=== PATIENT | female | born 2000 | race Caucasian/White ===

== ENCOUNTER 2020-10-29 03:07 | Observation (INO) | payer BC, OTHER ==
[2020-10-29 03:52] VITALS: O2SAT 99
[2020-10-29 03:57] LABS: Amphetamine,Urine NEGATIVE (NEGATIVE); Barbiturate,Urine NEGATIVE (NEGATIVE); Benzodiazepine,Urine NEGATIVE (NEGATIVE); Cocaine,Urine NEGATIVE (NEGATIVE); Methadone,Urine NEGATIVE (NEGATIVE); Opiate,Urine NEGATIVE (NEGATIVE); PCP,Urine NEGATIVE (NEGATIVE); THC,Urine NEGATIVE (NEGATIVE)
[2020-10-29 04:19] LABS: Appearance CLEAR (CLEAR); Leukocyte Esterase NEGATIVE (NEGATIVE); Specific Gravity 1.005 (1.005-1.025)
[2020-10-29 04:20] LABS: Bilirubin NEGATIVE (NEGATIVE); Blood NEGATIVE Ery/ul (0-5); Glucose NEGATIVE (NEGATIVE); Ketones NEGATIVE (NEGATIVE); Mucus SLIGHT /HPF (NEGATIVE); Nitrite NEGATIVE (NEGATIVE); Protein,Urine Dip NEGATIVE (Negative); Urobilinogen NEGATIVE mg/dL (0-1); WBC 0-2 /HPF (0-5)
[2020-10-29 04:21] LABS: Bacteria RARE /HPF (NEGATIVE); Epithelial Cells RARE /HPF (FEW)
[2020-10-29 05:12] VITALS: BP 92/60; PULSE 84
== END 2020-10-29 05:00 | disposition home or self-care (01) ==
LOC: OB 03:07
PROVIDERS: ADMIT Obstetrics & Gynecology; ATTEND Obstetrics & Gynecology
DX: O30.003 Twin pregnancy, unspecified number of placenta and unspecified number of amniotic sacs, third trimester (principal); Z3A.28 28 weeks gestation of pregnancy
CPT/HCPCS: 80307; 81001; G0378

== ENCOUNTER 2021-10-25 09:05 | Emergency (ER) | payer BC, OTHER ==
[2021-10-25] MEDS ORDERED: Sodium Chloride 0.9% 1000 ML 1,000 ML IV STA (09:27)
[2021-10-25] MEDS ORDERED: TYLENOL 325 MG PO ONE (09:27)
[2021-10-25] MEDS ORDERED: Zofran 4 MG/2 ML VIAL IV ONE (09:27)
[2021-10-25] MEDS ORDERED: Sodium Chloride 0.9% 1000 ML 1,000 ML ONE (09:47)
[2021-10-25] MEDS ORDERED: TYLENOL 325 MG ONE (09:47)
[2021-10-25] MEDS ORDERED: Zofran 4 MG/2 ML VIAL ONE (09:47)
[2021-10-25 09:58] LABS: Absolute Neutrophil Ct (ANC) 6.83 x10^3/uL (1.4-6.9); Basophil (Absolute #) 0.01 x10^3/uL (0-0.4); Eosinophil (Absolute #) 0 x10^3/uL (0-0.5); Hematocrit 38.5 % (35-47); Hemoglobin 12.5 g/dL (12.0-16.0); Lymphocyte (Absolute #) 1.11 x10^3/uL (1.0-4.6); Lymphocytes % 13.4 % (24.0-44.0); Mean Cell Volume 86.9 fL (78-100); Mean Corpuscular Hemoglobin 28.2 pg (26-32); Mean Corpuscular Hgb Concent. 32.5 g/dL (32-36); Mean Platelet Volume 11.1 fL (7.5-11.0); Monocyte (Absolute #) 0.29 x10^3/uL (0.0-1.3); Monocytes % 3.5 % (0.0-12.0); Neutrophil % 82.8 % (36.0-66.0); Platelet Count 213 x10^3/uL (150-450); Red Blood Count 4.43 x10^6/uL (4.1-5.4); Red Cell Distribution Width 14.5 % (11.5-14.0); White Blood Count 8.3 x10^3/uL (4.0-10.5)
[2021-10-25 10:04] LABS: Mucus SLIGHT /HPF (NEGATIVE); RBC 0-2 /HPF (0-2)
[2021-10-25 10:05] LABS: Appearance CLEAR (CLEAR); Bilirubin NEGATIVE (NEGATIVE); Glucose NEGATIVE (NEGATIVE); Ketones TRACE (NEGATIVE); Nitrite NEGATIVE (NEGATIVE); Protein,Urine Dip NEGATIVE (Negative); RBC NEGATIVE Ery/ul (0-5); Specific Gravity >=1.030 (1.005-1.025); Urine Cultured Indicated? NO; Urobilinogen 0.2 mg/dL (0-1)
[2021-10-25 10:06] LABS: Dipstick done @ ? MAIN LAB
[2021-10-25 10:09] LABS: ALBUMIN 4.9 g/dL (3.5-5.0); ALKALINE PHOSPHATASE 89 U/L (38-126); ANION GAP 17.2 MEQ/L (5-15); BLOOD UREA NITROGEN 9 mg/dL (7-17); CHLORIDE 101 mmol/L (98-107); Calcium 9.4 mg/dL (8.4-10.2); Carbon Dioxide 21 mmol/L (22-30); EST GLOMERULAR FILTRATION RATE > 60.0 ML/MIN; Glucose 95 mg/dL (74-106); LIPASE 49 U/L (23-300); Potassium 3.5 mmol/L (3.5-5.1); SGOT/AST 21 U/L (14-36); SGPT/ALT 14 U/L (0-35); SODIUM 136 mmol/L (137-145); Total Protein 8.8 g/dL (6.3-8.2)
[2021-10-25 10:39] LABS: INFLUENZA A NEGATIVE (NEGATIVE); INFLUENZA B NEGATIVE (NEGATIVE); RESPIRATORY SYNCTIAL VIRUS NEGATIVE (Negative); SARS-CoV-2 Xpert Express NEGATIVE (NEGATIVE)
--- NOTE | 2021-10-25 11:43 | ERPHSYRPT ---
- History of Present Illness Time Seen by Provider: 10/25/21 09:22 Historian: patient Exam Limitations: no limitations Patient Subjective Stated Complaint: pt here for loose stools for 5 days now, lower back pain, fever on and some nausea. Triage Nursing Assessment: pt alert. walked in resp easy, skin w/d/p. abd soft and flat, no edema noted Physician History: 21 years old female presented in the ER with 5 days history of off-and-on loose stool with associated generalized abdominal pain at times. Also reports having low-grade fever 3 days ago which is improved. Has nausea but no vomiting. No known sick contact. Patient is unable to keep up with hydration because of multiple loose bowel movements and feels weak fatigued tired and dehydrated. Denies any dizziness or lightheadedness. No chest pain palpitations or shortness of breath. Does complain of low back pain. Timing/Duration: day(s) (5), intermittent, worse Activities at Onset: rest Quality: aching Abdominal Pain Onset Location: generalized abdomen Pain Radiation: no radiation Severity of Pain-Max: moderate Severity of Pain-Current: none Modifying Factors: Improves With: nothing Associated Symptoms: back, diarrhea, fever/chills, nausea, No vomiting Allergies/Adverse Reactions: No Known Drug Allergies Allergy (Unverified 10/25/21 09:20) Home Medications: Norethindrone [Antonette] 1 ea DAILY 10/25/21 [History] Hx Tetanus, Diphtheria Vaccination/Date Given: No Hx Influenza Vaccination/Date Given: No Hx Pneumococcal Vaccination/Date Given: No Immunizations Up to Date: Yes Travel Risk - International Travel Have you traveled outside of the country in past 3 weeks: No - Coronavirus Screening Are you exhibiting any of the following symptoms?: Yes Symptoms: Fever, Vomiting/Diarrhea, Headaches/Body Aches/Fatigue Close contact with a COVID-19 positive Pt in past 14-21 Days: No - Vaccine Status Have you recieved a Covid-19 vaccination: No - Review of Systems Constitutional: Fever, Fatigue, Weakness Eyes: No Symptoms Ears, Nose, & Throat: No Symptoms Respiratory: No Symptoms Cardiac: No Symptoms Abdominal/Gastrointestinal: Abdominal Pain, Nausea, Diarrhea Genitourinary Symptoms: No Symptoms Musculoskeletal: Back Pain Neurological: No Symptoms Psychological: No Symptoms Endocrine: No Symptoms Hematologic/Lymphatic: No Symptoms Immunological/Allergic: No Symptoms - Past Medical History Pertinent Past Medical History: No - Past Surgical History Past Surgical History: No - Social History Smoking Status: Never smoker Exposure to second hand smoke: No Drug Use: none Patient Lives Alone: No - Female History Hx Last Menstrual Period: August Hx Now: No - Nursing Vital Signs Nursing Vital Signs: Initial Vital Signs Temperature 97.9 F 10/25/21 09:08 Pulse Rate 120 H 10/25/21 09:08 Respiratory Rate 16 10/25/21 09:08 Blood Pressure 99/84 10/25/21 09:08 O2 Sat by Pulse Oximetry 99 10/25/21 09:08 Pain Scale Pain Intensity 4 - Physical Exam General Appearance: no apparent distress Eye Exam: PERRL/EOMI Ears, Nose, Throat Exam: normal ENT inspection Neck Exam: normal inspection, full range of motion Respiratory Exam: normal breath sounds, lungs clear Cardiovascular Exam: normal heart sounds, tachycardia Gastrointestinal/Abdomen Exam: soft, normal bowel sounds, No tenderness Back Exam: normal inspection, normal range of motion Extremity Exam: normal inspection, normal range of motion Neurologic Exam: alert, oriented x 3, cooperative Skin Exam: normal color SpO2 Interpretation: normal SpO2: 98 O2 Delivery: Room Air Ordered Tests: Active Orders 24 hr Category Date Time Status IV Insertion STAT Care 10/25/21 09:27 Active CBC W DIFF Stat Lab 10/25/21 09:42 Completed CMP Stat Lab 10/25/21 09:42 Completed HCG,QUALITATIVE URINE Stat Lab 10/25/21 09:42 Completed LIPASE Stat Lab 10/25/21 09:42 Completed UA W/RFX CULTURE Stat Lab 10/25/21 09:42 Completed Medication Summary Discontinued Medications Generic Name Dose Route Start Last Admin Trade Name Davey PRN Reason Stop Dose Admin Acetaminophen 650 mg 10/25/21 09:27 10/25/21 09:53 Acetaminophen 325 Mg Tablet PO 10/25/21 09:28 650 mg STAT ONE Administration Acetaminophen Confirm 10/25/21 09:47 Acetaminophen 325 Mg Tablet Administered 10/25/21 09:48 Dose 650 mg .ROUTE .STK-MED ONE Sodium Chloride 1,000 mls @ 999 mls/hr 10/25/21 09:27 10/25/21 11:21 Sodium Chloride 0.9% 1000 Ml IV 10/25/21 10:27 Infused .Q1H1M STA Infusion Sodium Chloride Confirm 10/25/21 09:47 Sodium Chloride 0.9% 1000 Ml Administered 10/25/21 09:48 Dose 1,000 mls @ ud .ROUTE .STK-MED ONE Ondansetron HCl 4 mg 10/25/21 09:27 10/25/21 09:52 Ondansetron Hcl 4 Mg/2 Ml Vial IV 10/25/21 09:28 4 mg STAT ONE Administration Ondansetron HCl Confirm 10/25/21 09:47 Ondansetron Hcl 4 Mg/2 Ml Vial Administered 10/25/21 09:48 Dose 4 mg .ROUTE .K-[facility] ONE Lab/Rad Data: Laboratory Result Diagrams 10/25/21 09:42 10/25/21 09:42 Laboratory Results 10/25/21 10/25/21 10/25/21 Range/Units 09:42 09:42 09:42 WBC (4.0-10.5) x10^3/uL RBC (4.1-5.4) x10^6/uL Hgb (12.0-16.0) g/dL Hct (35-47) % MCV (78-100) fL MCH (26-32) pg MCHC (32-36) g/dL RDW (11.5-14.0) % Plt Count (150-450) x10^3/uL MPV (7.5-11.0) fL Gran % (36.0-66.0) % Immature Gran % (Auto) (0.00-0.4) % Nucleat RBC Rel Count (0.00-0.1) % Eos # (Auto) (0-0.5) x10^3/uL Immature Gran # (Auto) (0.00-0.03) x10^3u/L Absolute Lymphs (auto) (1.0-4.6) x10^3/uL Absolute Monos (auto) (0.0-1.3) x10^3/uL Absolute Nucleated RBC (0.00-0.01) x10^3u/L Lymphocytes % (24.0-44.0) % Monocytes % (0.0-12.0) % Eosinophils % (0.00-5.0) % Basophils % (0.0-0.4) % Absolute Granulocytes (1.4-6.9) x10^3/uL Basophils # (0-0.4) x10^3/uL Sodium 136 L (137-145) mmol/L Potassium 3.5 (3.5-5.1) mmol/L Chloride 101 (98-107) mmol/L Carbon Dioxide 21 L (22-30) mmol/L Anion Gap 17.2 H (5-15) MEQ/L BUN 9 (7-17) mg/dL Creatinine 0.50 L (0.52-1.04) mg/dL Estimated GFR > 60.0 ML/MIN Glucose 95 (74-106) mg/dL Calcium 9.4 (8.4-10.2) mg/dL Total Bilirubin 0.50 (0.2-1.3) mg/dL AST 21 (14-36) U/L ALT 14 (0-35) U/L Alkaline Phosphatase 89 (38-126) U/L Serum Total Protein 8.8 H (6.3-8.2) g/dL Albumin 4.9 (3.5-5.0) g/dL Lipase 49 (23-300) U/L Urinalys Dipstick Clnc MAIN LAB Urine Color YELLOW (YELLOW) Urine Appearance CLEAR (CLEAR) Urine pH 6.0 (5-6) Ur Specific Qu[place] >=1.030 (1.005-1.025) POC Urine Protein Conf NEGATIVE (Negative) Urine Ketones TRACE (NEGATIVE) Urine Nitrite NEGATIVE (NEGATIVE) Urine Bilirubin NEGATIVE (NEGATIVE) Urine Urobilinogen 0.2 (0-1) mg/dL Urine Leukocytes NEGATIVE (NEGATIVE) Urine WBC (Auto) NONE (0-5) /HPF Urine RBC (Auto) 0-2 (0-2) /HPF U Epithel Cells (Auto) NONE (FEW) /HPF Urine Bacteria (Auto) NONE (NEGATIVE) /HPF Urine RBC NEGATIVE (0-5) Armando/ul Urine Mucus (Auto) SLIGHT (NEGATIVE) /HPF Ur Culture Indicated? NO Urine Glucose NEGATIVE (NEGATIVE) mg/dL Urine HCG, Qual (Negative) Influenza Type A Ag NEGATIVE (NEGATIVE) Influenza Type B Ag NEGATIVE (NEGATIVE) RSV (PCR) NEGATIVE (Negative) SARS-CoV-2 (PCR) NEGATIVE (NEGATIVE) 10/25/21 10/25/21 Range/Units 09:42 09:42 WBC 8.3 (4.0-10.5) x10^3/uL RBC 4.43 (4.1-5.4) x10^6/uL Hgb 12.5 (12.0-16.0) g/dL Hct 38.5 (35-47) % MCV 86.9 (78-100) fL MCH 28.2 (26-32) pg MCHC 32.5 (32-36) g/dL RDW 14.5 H (11.5-14.0) % Plt Count 213 (150-450) x10^3/uL MPV 11.1 H (7.5-11.0) fL Gran % 82.8 H (36.0-66.0) % Immature Gran % (Auto) 0.2 (0.00-0.4) % Nucleat RBC Rel Count 0.0 (0.00-0.1) % Eos # (Auto) 0 (0-0.5) x10^3/uL Immature Gran # (Auto) 0.02 (0.00-0.03) x10^3u/L Absolute Lymphs (auto) 1.11 (1.0-4.6) x10^3/uL Absolute Monos (auto) 0.29 (0.0-1.3) x10^3/uL Absolute Nucleated RBC 0.00 (0.00-0.01) x10^3u/L Lymphocytes % 13.4 L (24.0-44.0) % Monocytes % 3.5 (0.0-12.0) % Eosinophils % 0.0 (0.00-5.0) % Basophils % 0.1 (0.0-0.4) % Absolute Granulocytes 6.83 (1.4-6.9) x10^3/uL Basophils # 0.01 (0-0.4) x10^3/uL Sodium (137-145) mmol/L Potassium (3.5-5.1) mmol/L Chloride (98-107) mmol/L Carbon Dioxide (22-30) mmol/L Anion Gap (5-15) MEQ/L BUN (7-17) mg/dL Creatinine (0.52-1.04) mg/dL Estimated GFR ML/MIN Glucose (74-106) mg/dL Calcium (8.4-10.2) mg/dL Total Bilirubin (0.2-1.3) mg/dL AST (14-36) U/L ALT (0-35) U/L Alkaline Phosphatase (38-126) U/L Serum Total Protein (6.3-8.2) g/dL Albumin (3.5-5.0) g/dL Lipase (23-300) U/L Urinalys Dipstick Clnc Urine Color (YELLOW) Urine Appearance (CLEAR) Urine pH (5-6) Ur Specific Qu[place] (1.005-1.025) POC Urine Protein Conf (Negative) Urine Ketones (NEGATIVE) Urine Nitrite (NEGATIVE) Urine Bilirubin (NEGATIVE) Urine Urobilinogen (0-1) mg/dL Urine Leukocytes (NEGATIVE) Urine WBC (Auto) (0-5) /HPF Urine RBC (Auto) (0-2) /HPF U Epithel Cells (Auto) (FEW) /HPF Urine Bacteria (Auto) (NEGATIVE) /HPF Urine RBC (0-5) Armando/ul Urine Mucus (Auto) (NEGATIVE) /HPF Ur Culture Indicated? Urine Glucose (NEGATIVE) mg/dL Urine HCG, Qual NEGATIVE (Negative) Influenza Type A Ag (NEGATIVE) Influenza Type B Ag (NEGATIVE) RSV (PCR) (Negative) SARS-CoV-2 (PCR) (NEGATIVE) - Progress Progress: improved Progress Note: 10/25/21 11:40 She is given symptomatic treatment along with fluids, on reevaluation feeling much better. No peritoneal signs on repeated evaluation as well. Normal white count, chemistries consistent with some dehydration. No UTI. Do not think needs imaging of abdomen as it seems to be viral gastroenteritis. Recommended increase hydration and will do Zofran. She has a negative COVID-19 as well. Discussed signs symptoms of worsening needing return to ER which she seems understanding. Counseled pt/family regarding: lab results, diagnosis, need for follow-up - Departure Departure Disposition: Home Clinical Impression: Gastroenteritis Condition: Stable Critical Care Time: No Referrals: DOCTOR,NO FAMILY [Primary Care Provider] - Follow up/PCP as directed BONNY BONILLA MD [ACTIVE STAFF] - Follow Up with PCP/3 days Instructions: Viral Gastroenteritis, Adult (DC) Additional Instructions: Drink plenty of fluids keep yourself well-hydrated. Take Tylenol as needed for pain. Take Zofran as needed for nausea. Follow-up with primary care for reevaluation. Return to ER for any worsening/intractable nausea vomiting/diarrhea/abdominal pain or if develop fever chills etc. Prescriptions: Ondansetron ODT 4 MG [Zofran Odt 4 mg] 1 ea PO QIDPRN PRN #7 tablet PRN Reason: n/v
[2021-10-25 12:00] VITALS: BP 95/69; PULSE 92; O2SAT 99
== END 2021-10-25 12:04 | disposition home or self-care (01) ==
LOC: ED 09:05
DX: A08.4 Viral intestinal infection, unspecified (principal); R19.7 Diarrhea, unspecified; R50.9 Fever, unspecified; R11.0 Nausea; R53.1 Weakness; R53.83 Other fatigue; R10.84 Generalized abdominal pain; Z28.310 Unvaccinated for COVID-19
CPT/HCPCS: 0241U; 36000; 36415; 80053; 81015; 81025; 83690; 85025; 96360; 96374; 99284; J2405; A9270-GY

== ENCOUNTER 2022-02-17 13:28 | Emergency (ER) | payer BC, OTHER ==
[2022-02-17 14:25] LABS: Basophil (Absolute #) 0.02 x10^3/uL (0-0.4); Eosinophil % 3.8 % (0.00-5.0); Eosinophil (Absolute #) 0.29 x10^3/uL (0-0.5); Hematocrit 35.4 % (35-47); Hemoglobin 11.4 g/dL (12.0-16.0); Lymphocyte (Absolute #) 2.11 x10^3/uL (1.0-4.6); Lymphocytes % 27.8 % (24.0-44.0); Mean Cell Volume 89.4 fL (78-100); Mean Corpuscular Hemoglobin 28.8 pg (26-32); Mean Corpuscular Hgb Concent. 32.2 g/dL (32-36); Mean Platelet Volume 10.8 fL (7.5-11.0); Monocyte (Absolute #) 0.34 x10^3/uL (0.0-1.3); Monocytes % 4.5 % (0.0-12.0); Neutrophil % 63.3 % (36.0-66.0); Platelet Count 188 x10^3/uL (150-450); Red Blood Count 3.96 x10^6/uL (4.1-5.4); Red Cell Distribution Width 15.3 % (11.5-14.0); White Blood Count 7.6 x10^3/uL (4.0-10.5)
[2022-02-17 14:56] LABS: Appearance CLEAR (CLEAR); Bilirubin NEGATIVE (NEGATIVE); Dipstick done @ ? MAIN LAB; Glucose NEGATIVE (NEGATIVE); Ketones NEGATIVE (NEGATIVE); Nitrite NEGATIVE (NEGATIVE); Protein,Urine Dip NEGATIVE (Negative); RBC NEGATIVE Ery/ul (0-5); Urobilinogen 0.2 mg/dL (0-1)
--- NOTE | 2022-02-17 14:56 | XRAY ---
Indication: Premature rupture of membranes. Evaluate RGEGORY and cervical length. Limited transabdominal OB ultrasound demonstrates single intrauterine with heart rate 146 BPM. 4 quadrant GREGORY is 3.5 cm. Cervical length is 3.1 cm with endocervix slightly open.
[2022-02-17 14:58] LABS: Urine Cultured Indicated? NO
--- NOTE | 2022-02-17 15:08 | ERPHSYRPT ---
- History of Present Illness Time Seen by Provider: 02/17/22 13:45 Source: patient Exam Limitations: no limitations Patient Subjective Stated Complaint: Pt is 17 weeks and at 15 weeks the pt had a US and she had low umbilical fluid and was told that it may have burst and she could terminate the or wait and see what her body does and to go to the ER if she ever feels like she may be getting an infections, so she is waiting and today she woke up feeling lethargic and she noticed her heart rate was running high and so she came in to be checked out Triage Nursing Assessment: Pt brought to the ER by her mother, tachycardic, de nies pain, pulses normal, skin n/w/d, urine appears really hydrated, doesn't appear to be in any distress Physician History: Patient is a 21-year-old 3 para 3 0 white female who presents at 17 weeks gestation. She presents with a complaint of lethargy and increased heart rate but no fever chills or sweats. She also reports her urine has been clear. She is followed by an STATE MANAGER in [place] and has been found to have lower than normal amounts of amniotic fluid. She was told to watch for fever chills or any other signs of amnionitis. Timing/Duration: day(s) (3), intermittent Activites at Onset: none Quality: cramping Onset Location: suprapubic Pain Radiation: none Severity of Pain-Max: moderate Severity of Pain-Current: moderate Prior abdominal problems: none Sexual intercourse history: non-contributory Allergies/Adverse Reactions: No Known Drug Allergies Allergy (Verified 02/17/22 13:48) Home Medications: Pnv No.95/Ferrous Fum/Folic AC [ Caplet] 1 each PO DAILY 02/17/22 [History] Hx Tetanus, Diphtheria Vaccination/Date Given: No Hx Influenza Vaccination/Date Given: No Hx Pneumococcal Vaccination/Date Given: No Travel Risk - International Travel Have you traveled outside of the country in past 3 weeks: No - Coronavirus Screening Are you exhibiting any of the following symptoms?: No Close contact with a COVID-19 positive Pt in past 14-21 Days: No - Vaccine Status Have you recieved a Covid-19 vaccination: No - Review of Systems Constitutional: No Fever, No Chills Eyes: No Symptoms Ears, Nose, & Throat: No Symptoms Respiratory: No Cough, No Dyspnea Cardiac: No Chest Pain, No Edema, No Syncope Abdominal/Gastrointestinal: No Abdominal Pain, No Nausea, No Vomiting, No Diarrhea Genitourinary Symptoms: No Dysuria Musculoskeletal: No Back Pain, No Neck Pain Skin: No Rash Neurological: No Dizziness, No Focal Weakness, No Sensory Changes Psychological: No Symptoms Endocrine: No Symptoms All Other Systems: Reviewed and Negative - Past Medical History Pertinent Past Medical History: No - Past Surgical History Past Surgical History: No - Social History Smoking Status: Never smoker Exposure to second hand smoke: No Drug Use: none Patient Lives Alone: No - Female History Hx Now: Yes Expected Date of Delivery: 07/23/22 - Nursing Vital Signs Nursing Vital Signs: Initial Vital Signs Temperature 98.3 F 02/17/22 13:34 Pulse Rate 109 H 02/17/22 13:34 Blood Pressure 102/73 02/17/22 13:34 O2 Sat by Pulse Oximetry 100 02/17/22 13:34 Pain Scale Pain Intensity 0 - Physical Exam General Appearance: mild distress, alert Eye Exam: PERRL/EOMI, eyes nml inspection Ears, Nose, Throat Exam: normal ENT inspection, TMs normal, pharynx normal, moist mucous membranes Neck Exam: normal inspection, non-tender, supple, full range of motion Respiratory Exam: normal breath sounds, lungs clear, No respiratory distress Cardiovascular Exam: regular rate/rhythm, normal heart sounds, normal peripheral pulses Gastrointestinal/Abdomen Exam: soft, No tenderness, No mass Back Exam: normal inspection, normal range of motion, No CVA tenderness, No vertebral tenderness Extremity Exam: normal inspection, normal range of motion, pelvis stable Neurologic Exam: alert, oriented x 3, cooperative, applied anthropologist II-XII nml as tested, no rmal mood/affect, sensation nml, No motor deficits Skin Exam: normal color, warm, dry Lymphatic Exam: No adenopathy SpO2: 100 - Course Nursing assessment & vital signs reviewed: Yes - Radiology Ultrasound Exam OB Ultrasound: Other (Ultrasound shows a amniotic fluid index of 3.5. Consistent with oligohydramnios) Ordered Tests: Active Orders 24 hr Category Date Time Status OB LIMITED [US] Stat Exams 02/17/22 14:52 Completed CBC W DIFF Stat Lab 02/17/22 14:16 Completed UA W/RFX CULTURE Stat Lab 02/17/22 14:20 Completed Lab/Rad Data: Laboratory Result Diagrams 02/17/22 14:16 Laboratory Results 02/17/22 02/17/22 Range/Units 14:20 14:16 WBC 7.6 (4.0-10.5) x10^3/uL RBC 3.96 L (4.1-5.4) x10^6/uL Hgb 11.4 L (12.0-16.0) g/dL Hct 35.4 (35-47) % MCV 89.4 (78-100) fL MCH 28.8 (26-32) pg MCHC 32.2 (32-36) g/dL RDW 15.3 H (11.5-14.0) % Plt Count 188 (150-450) x10^3/uL MPV 10.8 (7.5-11.0) fL Gran % 63.3 (36.0-66.0) % Immature Gran % (Auto) 0.3 (0.00-0.4) % Nucleat RBC Rel Count 0.0 (0.00-0.1) % Eos # (Auto) 0.29 (0-0.5) x10^3/uL Immature Gran # (Auto) 0.02 (0.00-0.03) x10^3u/L Absolute Lymphs (auto) 2.11 (1.0-4.6) x10^3/uL Absolute Monos (auto) 0.34 (0.0-1.3) x10^3/uL Absolute Nucleated RBC 0.00 (0.00-0.01) x10^3u/L Lymphocytes % 27.8 (24.0-44.0) % Monocytes % 4.5 (0.0-12.0) % Eosinophils % 3.8 (0.00-5.0) % Basophils % 0.3 (0.0-0.4) % Absolute Granulocytes 4.80 (1.4-6.9) x10^3/uL Basophils # 0.02 (0-0.4) x10^3/uL Urinalys Dipstick Clnc MAIN LAB Urine Color LT.YELLOW (YELLOW) Urine Appearance CLEAR (CLEAR) Urine pH 6.0 (5-6) Ur Specific [place]der 1.010 (1.005-1.025) POC Urine Protein Conf NEGATIVE (Negative) Urine Ketones NEGATIVE (NEGATIVE) Urine Nitrite NEGATIVE (NEGATIVE) Urine Bilirubin NEGATIVE (NEGATIVE) Urine Urobilinogen 0.2 (0-1) mg/dL Urine Leukocytes NEGATIVE (NEGATIVE) Urine WBC (Auto) NONE (0-5) /HPF Urine RBC (Auto) NONE (0-2) /HPF U Epithel Cells (Auto) NONE (FEW) /HPF Urine Bacteria (Auto) NONE (NEGATIVE) /HPF Urine RBC NEGATIVE (0-5) Armando/ul Ur Culture Indicated? NO Urine Glucose NEGATIVE (NEGATIVE) mg/dL - Progress Progress: unchanged Air Movement: good Blood Culture(s) Obtained: No Antibiotics given: No - Departure Departure Disposition: Home Clinical Impression: Oligohydramnios Condition: Stable Critical Care Time: No Referrals: DOCTOR,NO FAMILY [Primary Care Provider] - Follow up/PCP as directed Instructions: Threatened Miscarriage (DC)
[2022-02-17 15:13] VITALS: BP 106/66; PULSE 86; O2SAT 98
== END 2022-02-17 15:15 | disposition home or self-care (01) ==
LOC: ED 13:28
DX: O41.02X0 Oligohydramnios, second trimester, not applicable or unspecified (principal); Z3A.17 17 weeks gestation of pregnancy; O26.812 Pregnancy related exhaustion and fatigue, second trimester; Z28.310 Unvaccinated for COVID-19
CPT/HCPCS: 36415; 76815; 81015; 85025; 99283

== ENCOUNTER 2022-05-08 03:25 | Emergency (ER) | payer BC, OTHER ==
[2022-05-08] MEDS ORDERED: TYLENOL 325 MG PO STA (03:47)
[2022-05-08] MEDS ORDERED: MOTRIN 400 MG PO ONE (03:47)
[2022-05-08] MEDS ORDERED: TYLENOL 325 MG ONE (03:49)
[2022-05-08] MEDS ORDERED: MOTRIN 400 MG ONE (03:49)
--- NOTE | 2022-05-08 04:02 | ERPHSYRPT ---
- History of Present Illness Time Seen by Provider: 05/08/22 03:40 Source: patient Exam Limitations: no limitations Patient Subjective Stated Complaint: Pt reports she had a approx [address] Louie at [facility]. For two days she has been experienci ng diarrhea, migraine and nausea with no vomiting. She woke up this morning and had a fever of 100.4F. Triage Nursing Assessment: Pt alert and oriented x3. No apparent respiratory distress. Skin w/d/p. Ambulated to ED cot without difficulty. incision clean and dry, no redness or drainage. Physician History: This is a 21-year-old white female patient who underwent a section 3 weeks ago at [facility]. The last 2 days patient has experienced intermittent fevers, migraine headaches and nausea without vomiting. She has had a few loose stools as well. This morning, her fever was 100.4 F. Patient states her headache and fever have improved with Tylenol and ibuprofen. Patient does have a history of anxiety issues. She does not have chest pain. She denies a cough. She denies shortness of breath. She has no significant abdominal pain. Timing/Duration: day(s) (2) Cough Quality/Degree: no cough Possible Cause: no prior episodes Modifying Factors: Improves With: nothing Associated Symptoms: fever, headache, No chest pain/soreness, No cough, No muscle aches, No shortness of breath, No sore throat Allergies/Adverse Reactions: No Known Drug Allergies Allergy (Verified 05/08/22 03:32) Home Medications: Pnv No.95/Ferrous Fum/Folic AC [ Caplet] 1 each PO DAILY 02/17/22 [History] Hx Tetanus, Diphtheria Vaccination/Date Given: Yes Hx Influenza Vaccination/Date Given: No Hx Pneumococcal Vaccination/Date Given: No Travel Risk - International Travel Have you traveled outside of the country in past 3 weeks: No - Coronavirus Screening Are you exhibiting any of the following symptoms?: Yes Symptoms: Fever Close contact with a COVID-19 positive Pt in past 14-21 Days: No - Vaccine Status Have you recieved a Covid-19 vaccination: No - Review of Systems Constitutional: Fever Eyes: No Symptoms Ears, Nose, & Throat: No Symptoms Respiratory: No Symptoms Cardiac: No Symptoms Abdominal/Gastrointestinal: Nausea, Diarrhea, No Abdominal Pain, No Vomiting Genitourinary Symptoms: No Symptoms Musculoskeletal: No Symptoms Skin: No Symptoms Neurological: No Symptoms Psychological: No Symptoms Endocrine: No Symptoms Hematologic/Lymphatic: No Symptoms Immunological/Allergic: No Symptoms All Other Systems: Reviewed and Negative - Past Medical History Pertinent Past Medical History: Yes Psycho-Social History: Anxiety - Past Surgical History Past Surgical History: Yes Female Surgical History: Section - Social History Smoking Status: Never smoker Exposure to second hand smoke: No Drug Use: none Patient Lives Alone: No - Female History Hx Now: No - Nursing Vital Signs Nursing Vital Signs: Initial Vital Signs Temperature 100.2 F 05/08/22 03:31 Pulse Rate 126 H 05/08/22 03:31 Respiratory Rate 17 05/08/22 03:31 Blood Pressure 107/73 05/08/22 03:31 O2 Sat by Pulse Oximetry 96 05/08/22 03:31 Pain Scale Pain Intensity 3 - Physical Exam General Appearance: no apparent distress, alert, anxiety Eye Exam: PERRL/EOMI, eyes nml inspection Ears, Nose, Throat Exam: normal ENT inspection, moist mucous membranes Neck Exam: normal inspection, non-tender, supple, full range of motion Respiratory Exam: normal breath sounds, lungs clear, airway intact, No chest tenderness, No respiratory distress Cardiovascular Exam: tachycardia Gastrointestinal/Abdomen Exam: soft, normal bowel sounds, other (Incision site is clean dry intact without evidence of infection or drainage), No tenderness Pelvic Exam: not done Rectal Exam: not done Back Exam: normal inspection, normal range of motion, No CVA tenderness, No vertebral tenderness Extremity Exam: normal inspection, normal range of motion, pelvis stable Neurologic Exam: alert, oriented x 3, cooperative, pmo lead II-XII nml as tested, normal mood/affect, nml cerebellar function, nml station & gait, sensation nml Skin Exam: normal color, warm, dry Lymphatic Exam: No adenopathy SpO2 Interpretation: normal SpO2: 96 O2 Delivery: Room Air - Course Nursing assessment & vital signs reviewed: Yes Ordered Tests: Active Orders 24 hr Category Date Time Status UA W/RFX UR CULTURE Stat Lab 05/08/22 05:00 Completed Medication Summary Discontinued Medications Generic Name Dose Route Start Last Admin Trade Name Freq PRN Reason Stop Dose Admin Acetaminophen 650 mg 05/08/22 03:47 05/08/22 03:50 Acetaminophen 325 Mg Tablet PO 05/08/22 03:48 650 mg STAT STA Administration Acetaminophen Confirm 05/08/22 03:49 Acetaminophen 325 Mg Tablet Administered 05/08/22 03:50 Dose 650 mg .ROUTE .STK-MED ONE Ibuprofen 400 mg 05/08/22 03:47 05/08/22 03:50 Ibuprofen 400 Mg Tablet PO 05/08/22 03:48 400 mg STAT ONE Administration Ibuprofen Confirm 05/08/22 03:49 Ibuprofen 400 Mg Tablet Administered 05/08/22 03:50 Dose 400 mg .ROUTE .STK-MED ONE Lab/Rad Data: Laboratory Results 05/08/22 05/08/22 Range/Units 05:00 04:15 Urine Color Yellow (Yellow) Urine Appearance Clear (Clear) Urine pH 6.5 (4.6-8.0) Ur Specific [place] 1.015 (1.005-1.030) Urine Protein Negative (Negative) Urine Glucose (UA) Negative (Negative) mg/dL Urine Ketones Negative (Negative) Urine Blood Small A (Negative) Urine Nitrite Negative (Negative) Urine Bilirubin Negative (Negative) Urine Urobilinogen 1.0 A (0.2) mg/dL Ur Leukocyte Esterase Negative (Negative) U Hyaline Cast (Auto) NONE SEEN (0-2) /LPF Urine Microscopic RBC 6-10 A (0-5) /HPF Urine Microscopic WBC 0-2 (0-5) /HPF Ur Epithelial Cells Few (None Seen) /HPF Urine Bacteria None Seen (None Seen) /HPF Urine Culture Reflexed NO (NO) Group A Strep Antibody NOT DETECTED (NEGATIVE) - Progress Progress: improved, re-examined Air Movement: good Progress Note: 05/08/22 04:41 Patient is refusing the COVID, influenza a and B, and RSV nasal swab testing. She is allowing strep test and urinalysis. 05/08/22 05:34 This patient's medical issue is of low complexity. This is based on the patient's complaint, patient history and physical findings on examination. I had originally ordered viral swabs, strep test and urinalysis. Patient is refusing the nasal swabs. So her testing is incomplete by her choice. Her diagnosis is fever in adult of unknown source. In addition, nausea in adult of unknown source. She is aware that she has refused testing that could give her an additional diagnosis. Patient does not have an acute abdomen. She has no cough. Based on the above we will send a prescription of Zofran to her pharmacy. She can use Tylenol and ibuprofen for fever and pain control Blood Culture(s) Obtained: No Antibiotics given: No Counseled pt/family regarding: lab results, diagnosis, need for follow-up Medical Desision Making - Discussion of managment Reviewed:: Test results (Reviewed with patient) Agreed on:: Treatment plan (Reviewed with patient), need for follow-up (Reviewed with patient) - Diagnostic Testing Diagnostic Testing: Diagnostic tests were ordered,analyzed, and reviewed by me and used in my medical decision making for this patient. Radiologic studies (if ordered) were read by me initially then discussed with the radiologist . - Risk of complications Minimal Risk: Minimal risk of morbidity - Departure Departure Disposition: Home Clinical Impression: Nausea, Fever, Diarrhea Condition: Stable Critical Care Time: No Referrals: YESICA ARNOLD [employer]ER[employer]GEANT [Primary Care Provider] - Follow up/PCP as directed Additional Instructions: Drink plenty of fluids. Take your medication as prescribed. Use Tylenol and ibuprofen for pain and fever control. Follow-up with your primary care provider for further evaluation and management. Prescriptions: Ondansetron ODT 4 MG [Zofran Odt 4 mg] 4 mg PO Q6H PRN PRN #10 tablet PRN Reason: Vomiting
[2022-05-08 05:25] LABS: Appearance Clear (Clear); Bacteria None Seen /HPF (None Seen); Bilirubin Negative (Negative); Blood Small (Negative); Epithelial Cells Few /HPF (None Seen); Glucose, Urine Negative (Negative); Hyaline Casts NONE SEEN /LPF (0-2); Ketones Negative (Negative); Leukocyte Esterase Negative (Negative); Nitrite Negative (Negative); Ph 6.5 (4.6-8.0); Protein,Urine Dip Negative (Negative); Specific Gravity 1.015 (1.005-1.030); WBC 0-2 /HPF (0-5)
[2022-05-08 05:29] LABS: ADD URINE CULTURE? NO (NO)
[2022-05-08 05:40] VITALS: BP 105/59; PULSE 72; O2SAT 97
== END 2022-05-08 05:45 | disposition home or self-care (01) ==
LOC: ED 03:25
DX: R50.9 Fever, unspecified (principal); R11.0 Nausea; R19.7 Diarrhea, unspecified; Z28.310 Unvaccinated for COVID-19
CPT/HCPCS: 81001; 87651; 99283; A9270-GY

== ENCOUNTER 2023-08-17 14:42 | Emergency (ER) | payer BC, OTHER ==
[2023-08-17 14:55] VITALS: TEMP 97.4; O2SAT 97
[2023-08-17] MEDS: BENADRYL 12.5 MG/5 ML PO ONE (15:07)
[2023-08-17] MEDS ORDERED: solu-MEDROL ONE (15:07)
[2023-08-17] MEDS ORDERED: Sterile H2O 10 ml IJ ONE (15:07)
[2023-08-17] MEDS ORDERED: Pepcid 20 MG VIAL IV ONE (15:07)
[2023-08-17] MEDS ORDERED: BENADRYL 50 MG/ML ONE (15:07)
[2023-08-17] MEDS: solu-MEDROL 125 MG, Sterile H2O 10 ml 2 ML IV ONE (15:09)
[2023-08-17] MEDS: Pepcid 20 MG VIAL IV ONE (15:09)
[2023-08-17] MEDS: BENADRYL 50 MG/ML IV ONE (15:10)
--- NOTE | 2023-08-17 15:53 | ERPHSYRPT ---
- History of Present Illness Time Seen by Provider: 08/17/23 15:00 Source: patient Exam Limitations: no limitations Patient Subjective Stated Complaint: pt here for allergic reaction to almonds about 15 mins ago, she states she had a reaction similar to this years ago but up until today she has been able to eat them Triage Nursing Assessment: pt alert, walked in, resp easy, no drooling, no rash,skin w/d/p. moves all ext well, no edema noted Physician History: Patient is a 23-year-old female presents to emergency department for evaluation of an allergic reaction. Patient believes that her allergic reaction is to a lmonds. Patient had almonds prior to onset of her symptoms. Patient had a similar reaction when she was a child. Patient is known to be allergic to nuts. After eating her almonds patient developed a fullness in her throat. Patient became concerned and came to our ED. Otherwise no systemic manifestations. No pruritus or hives. No wheezing or shortness of breath. No abdominal cramping. Patient symptoms are mild to moderate in intensity. Patient states otherwise healthy. She voices no other complaints or concerns at this time. Portions of this note were created with voice recognition technology. There may be grammatical, spelling, punctuation or sound alike errors Timing/Duration: today Severity: moderate Modifying Factors: Improves With: nothing Associated Symptoms: denies symptoms Allergies/Adverse Reactions: nut - unspecified Allergy (Verified 08/17/23 14:45) Home Medications: Dextroamphetamine/Amphetamine [Dextroamp-Amphet ER 5 mg Cap] 1 ea DAILY 08/17/23 [History] Oxcarbazepine [Oxtellar Xr] 150 mg PO DAILY 08/17/23 [History] Hx Tetanus, Diphtheria Vaccination/Date Given: No Hx Influenza Vaccination/Date Given: No Hx Pneumococcal Vaccination/Date Given: No Immunizations Up to Date: Yes Travel Risk - International Travel Have you traveled outside of the country in past 3 weeks: No - Emerging Infectious Disease Are you exhibiting symptoms associated with any current EIDs: No - Review of Systems Constitutional: No Symptoms, No Fever, No Chills Eyes: No Symptoms Ears, Nose, & Throat: No Symptoms Respiratory: No Symptoms, No Cough, No Dyspnea Cardiac: No Symptoms, No Chest Pain, No Edema, No Syncope Abdominal/Gastrointestinal: No Symptoms, No Abdominal Pain, No Nausea, No Vomiting, No Diarrhea Genitourinary Symptoms: No Symptoms, No Dysuria Musculoskeletal: No Symptoms, No Back Pain, No Neck Pain Skin: No Symptoms, No Rash Neurological: No Symptoms, No Dizziness, No Focal Weakness, No Sensory Changes Psychological: No Symptoms Endocrine: No Symptoms Hematologic/Lymphatic: No Symptoms Immunological/Allergic: No Symptoms All Other Systems: Reviewed and Negative - Past Medical History Pertinent Past Medical History: Yes Psycho-Social History: Anxiety, Other - Past Surgical History Past Surgical History: Yes Female Surgical History: Section - Female History Hx Last Menstrual Period: last week Hx Now: No - Social History Smoking Status: Never smoker Exposure to second hand smoke: No Drug Use: none Patient Lives Alone: No - Nursing Vital Signs Nursing Vital Signs: Initial Vital Signs Temperature 97.4 F 08/17/23 14:54 Pulse Rate 90 08/17/23 14:54 Respiratory Rate 18 08/17/23 14:54 Blood Pressure 100/73 08/17/23 14:54 O2 Sat by Pulse Oximetry 97 08/17/23 14:54 Pain Scale Pain Intensity 0 - Physical Exam General Appearance: no apparent distress, alert Eye Exam: PERRL/EOMI, eyes nml inspection Ears, Nose, Throat Exam: normal ENT inspection, TMs normal, pharynx normal, moist mucous membranes Neck Exam: normal inspection, non-tender, supple, full range of motion Respiratory Exam: normal breath sounds, lungs clear, No respiratory distress Cardiovascular Exam: regular rate/rhythm, normal heart sounds, normal peripheral pulses Gastrointestinal/Abdomen Exam: soft, normal bowel sounds, No tenderness, No mass Back Exam: normal inspection, normal range of motion, No CVA tenderness, No vertebral tenderness Extremity Exam: normal inspection, normal range of motion, pelvis stable Neurologic Exam: alert, oriented x 3, cooperative, normal mood/affect, nml cerebellar function, nml station & gait, sensation nml, No motor deficits Skin Exam: normal color, warm, dry, No rash Lymphatic Exam: No adenopathy SpO2 Interpretation: normal SpO2: 97 O2 Delivery: Room Air - Course Nursing assessment & vital signs reviewed: Yes Ordered Tests: Active Orders 24 hr Category Date Time Status IV Insertion STAT Care 08/17/23 14:58 Active Pulse Oximetry (ED) STAT Care 08/17/23 14:58 Active Medication Summary Discontinued Medications Generic Name Dose Route Start Last Admin Trade Name Davey PRN Reason Stop Dose Admin Methylprednisolone Sodium 0 mg 08/17/23 14:58 08/17/23 15:09 Succinate 125 mg/ Sterile IV 08/17/23 14:59 125 mg Water 2 ml STAT ONE Administration Diphenhydramine HCl 25 mg 08/17/23 14:58 08/17/23 15:07 Diphenhydramine Hcl 12.5 Mg/5 Ml Oral Solution PO 08/17/23 14:59 Not Given STAT ONE Diphenhydramine HCl Confirm 08/17/23 15:07 Diphenhydramine Hcl 50 Mg/Ml Vial Administered 08/17/23 15:08 Dose 50 mg .ROUTE .STK-MED ONE Diphenhydramine HCl 25 mg 08/17/23 15:08 08/17/23 15:10 Diphenhydramine Hcl 50 Mg/Ml Vial IV 08/17/23 15:09 25 mg STAT ONE Administration Famotidine 20 mg 08/17/23 14:58 08/17/23 15:09 Famotidine 20 Mg/1 Vial IV 08/17/23 14:59 20 mg STAT ONE Administration Famotidine Confirm 08/17/23 15:07 Famotidine 20 Mg/1 Vial Administered 08/17/23 15:08 Dose 20 mg IV .STK-MED ONE Methylprednisolone Sodium Succinate Confirm 08/17/23 15:07 Methylprednis Sod Succ 125 Mg/2 Ml Vial Administered 08/17/23 15:08 Dose 125 mg .ROUTE .STK-MED ONE Sterile Water Confirm 08/17/23 15:07 Water For Injection,Sterile 10 Ml Vial Administered 08/17/23 15:08 Dose 10 ml IJ .STK-MED ONE - Progress Progress: improved Progress Note: 23-year-old female presents to our ED with an allergic reaction. Upon evaluation she was in no acute distress. Patient felt as though her throat was tight. Patient received famotidine Benadryl and Solu-Medrol. Patient reevaluat ed. Symptoms resolved. Patient states is ready for discharge. Prescriptions forwarded to patient's pharmacy. Parents at bedside. They voiced no other complaints or concerns at this time. Portions of this note were created with voice recognition technology. There may be grammatical, spelling, punctuation or sound alike errors Complexity problem addressed is moderate acute complicated. No critical care time. Complexity of data reviewed and analyzed is none. No specialized testing ordered. Diagnosis made based on history and physical exam. Risk of complication and or risk morbidity/mortality of patient management is moderate. A prescription for prednisone famotidine and EpiPen reported to patient's pharmacy. Vital stable. Time spent to discharge patient is approximately 20 m inutes. Plan of care established for shared decision making. No social determinants of health present impede follow-up. Patient agrees to follow-up with her primary care doctor within 48 hours for evaluation. Portions of this note were created with voice recognition technology. There may be grammatical, spelling, punctuation or sound alike errors 08/17/23 17:06 Counseled pt/family regarding: diagnosis, need for follow-up - Departure Departure Disposition: Home Clinical Impression: Allergic reaction Condition: Stable Critical Care Time: No Referrals: YESICA ARNOLD NP [Primary Care Provider] - Follow up/PCP as directed Additional Instructions: Discharge/Care Plan SOLO WOODS was seen on 08/17/23 in the Emergency Room. The patient was counseled regarding Diagnosis,Lab results, Imaging studies, need for follow up and when to return to the Emergency Room. Prescriptions given: Discharge Note I have spoken with the patient and/or caregivers. I have explained the patient's condition, diagnosis and treatment plan based on the information available to me at this time. I have answered the patient's and/or caregiver's questions and addressed any concerns. The patient and/or caregivers have as good understanding of the patient's diagnosis, condition and treatment plan as can be expected at this point. The vital signs have been stable. The patient's condition is stable and appropriate for discharge from the emergency department. The patient will pursue further outpatient evaluation with the primary care physician or other designated or consulting physician as outlined in the discharge instructions. The patient and/or caregivers are agreeable to this plan of care and follow-up instructions have been explained in detail. The patient and/or caregivers have received these instruction. The patient/and or caregivers are aware that any significant change in condition or worsening of symptoms should prompt an immediate return to this or the closest emergency department or call 911. Prescriptions: EPINEPHrine [Epipen 2-Alex] 0.3 mg IM DAILY 1 Days #1 packet Famotidine 20 mg [Pepcid 20 MG] 20 mg PO BID 7 Days #14 tablet predniSONE [Prednisone] 20 mg PO DAILY 3 Days #6 tablet
[2023-08-17 16:25] VITALS: BP 103/72; PULSE 63; RESP 16
== END 2023-08-17 17:16 | disposition home or self-care (01) ==
LOC: ED 14:42
DX: T78.1XXA Other adverse food reactions, not elsewhere classified, initial encounter (principal); R09.A2 Foreign body sensation, throat; Z79.52 Long term (current) use of systemic steroids; Z79.899 Other long term (current) drug therapy
CPT/HCPCS: 36000; 94760; 96374; 96375; 99284; J1200; J2919

== ENCOUNTER 2024-07-31 13:49 | Emergency (ER) | payer BC, OTHER ==
[2024-07-31 14:11] VITALS: TEMP 97.1
[2024-07-31 14:34] LABS: Absolute Neutrophil Ct (ANC) 3.27 x10^3/uL (1.56-6.13); BASOPHIL % 0.5 % (0.1-1.2); Basophil (Absolute #) 0.03 x10^3/uL (0.01-0.08); Eosinophil % 1.8 % (0.7-5.8); Eosinophil (Absolute #) 0.11 x10^3/uL (0.04-0.36); Hematocrit 33.9 % (34.1-44.9); Hemoglobin 11.2 g/dL (11.2-15.7); IMMATURE GRAN # 0.02 x10^3u/L (0.001-0.031); IMMATURE GRAN % 0.3 % (0.001-0.429); Lymphocyte (Absolute #) 2.41 x10^3/uL (1.18-3.74); Lymphocytes % 38.9 % (19.3-51.7); Mean Cell Volume 87.8 fL (79.4-94.8); Mean Platelet Volume 11.2 fL (9.4-12.3); Monocyte (Absolute #) 0.36 x10^3/uL (0.24-0.86); Monocytes % 5.8 % (4.7-12.5); Neutrophil % 52.7 % (34.0-71.1); Platelet Count 220 x10^3/uL (182-369); Red Blood Count 3.86 x10^6/uL (3.93-5.22); White Blood Count 6.2 x10^3/uL (3.98-10.04)
[2024-07-31] MEDS ORDERED: Sodium Chloride 0.9% 1000 ML 1,000 ML ONE (14:36)
[2024-07-31] MEDS: Sodium Chloride 0.9% 1000 ML 1,000 ML IV STA (14:37)
--- NOTE | 2024-07-31 14:38 | ERPHSYRPT ---
- History of Present Illness Time Seen by Provider: 07/31/24 14:01 Source: patient Exam Limitations: no limitations Patient Subjective Stated Complaint: patient stated "I am feeling shaky, feels heart beating fast and that's when I notice my blood sugar is dropping" Triage Nursing Assessment: Patient presented to ER stating she has been having issues with low blood sugar, alert and oriented, blood sugar 94 Physician History: Patient is here for 1 week of having shaky and dizzy episodes. States that they last less than a few minutes. Her initial complaint is hypoglycemia. But her blood sugar is 96. No history of diabetes, is not on any diabetic medication. She states that she just felt that way. She states that she does have a history of a tubal ligation. Does not believe that she is . She lives at home with her 4 children and her boyfriend. She states that no one else is ill at home. During these episodes she has no numbness, weakness, other neurodeficits. EKG demonstrates sinus rhythm, rate 73, MS interval 165, QRS 81, QTc is 426, no STEMI or other ST changes Allergies/Adverse Reactions: nut - unspecified Allergy (Verified 07/31/24 14:12) Home Medications: No Reportable Medications [No Reported Medications] 07/31/24 [History] Hx Tetanus, Diphtheria Vaccination/Date Given: No Hx Influenza Vaccination/Date Given: No Hx Pneumococcal Vaccination/Date Given: No Immunizations Up to Date: No Travel Risk - International Travel Have you traveled outside of the country in past 3 weeks: No - Emerging Infectious Disease Are you exhibiting symptoms associated with any current EIDs: No - Past Medical History Pertinent Past Medical History: No - Past Surgical History Past Surgical History: Yes Neuro Surgical History: No Pertinent History Cardiac: No Pertinent History Respiratory: No Pertinent History Gastrointestinal: No Pertinent History Genitourinary: No Pertinent History Female Surgical History: Section Other Surgical History: c - Female History Hx Last Menstrual Period: few weeks ago Hx Now: No - Social History Smoking Status: Never smoker Exposure to second hand smoke: Yes Drug Use: none - Social Determinants of Health Will the patient participate in the screening: Yes Do you worry about a steady place to live?: No In the past 12 months,have you had to go without utilities?: No Transportation Issues: No Has anyone in your support network made you feel unsafe?: No Have you or anyone in your house had to go w/o enough food: No - Nursing Vital Signs Nursing Vital Signs: Initial Vital Signs Temperature 97.1 F 07/31/24 13:57 Pulse Rate 76 07/31/24 13:57 Respiratory Rate 18 07/31/24 13:57 Blood Pressure 112/81 07/31/24 13:57 O2 Sat by Pulse Oximetry 100 07/31/24 13:57 Pain Scale Pain Intensity 0 - Physical Exam SpO2: 100 Comments: 07/31/24 14:37 Review of Systems Constitutional: Negative for fever. HENT: Negative for congestion. Respiratory: Negative for shortness of breath. Cardiovascular: Negative for chest pain. Gastrointestinal: Negative for abdominal pain. Genitourinary: Negative for dysuria. Musculoskeletal: Negative for back pain. Skin: Negative for rash. Neurological: Negative for headaches. Psychiatric/Behavioral: Negative for behavioral problems. All other systems reviewed and are negative. Physical Exam Vitals signs and nursing note reviewed. Constitutional: Appearance: Patient is well-developed. HENT: Head: Normocephalic and atraumatic. Eyes: Conjunctiva/sclera: Conjunctivae normal. Neck: Musculoskeletal: Normal range of motion. Trachea: No tracheal deviation. Cardiovascular: Rate and Rhythm: Normal rate. Heart sounds normal. Pulmonary: Effort: Pulmonary effort is normal. No respiratory distress. Abdominal: Palpations: Abdomen is soft. Musculoskeletal: General: No deformity. Skin: General: Skin is warm and dry. Neurological/ Psychiatric: Mental Status: Mental status, behavior, interaction with environment is appropriate for patient's age and condition Motor: There is no pronator drift of out-stretched arms. Muscle bulk and tone are normal. Strength is full bilaterally. Reflexes: Reflexes are 2+ and symmetric at the biceps, triceps, knees, and ankles. Plantar responses are flexor. Sensory: Light touch sense are intact in bilateral upper and lower extremities. There is no sign of neglect. Coordination: Rapid alternating movements are intact. There is no dysmetria on [id number] and [id number]. There are no abnormal or extraneous movements. Romberg is absent. Gait/Stance: Posture is normal, patient is ambultory without difficuly to bed - Course Nursing assessment & vital signs reviewed: Yes EKG Interpreted by Me: Sinus Rhythm (Sinus rhythm no ST changes my interpretation) Ordered Tests: Active Orders 24 hr Category Date Time Status Hat And Cap Opener STAT Care 07/31/24 14:13 Completed EKG-ER Only STAT Care 07/31/24 14:13 Completed IV Insertion STAT Care 07/31/24 14:13 Completed CHEST 1 VIEW (PORTABLE) Stat Exams 07/31/24 14:13 Completed HEAD WITHOUT CONTRAST [CT] Stat Exams 07/31/24 14:14 Completed CBC W DIFF Stat Lab 07/31/24 14:25 Completed CMP Stat Lab 07/31/24 14:25 Completed HCG QUALITATIVE, URINE Stat Lab 07/31/24 14:54 Completed MAGNESIUM Stat Lab 07/31/24 14:25 Completed NT PRO BNPII Stat Lab 07/31/24 14:25 Completed POCT GLUCOSE Stat Lab 07/31/24 13:57 Completed TROPONIN Q4H Lab 07/31/24 14:25 Completed TROPONIN Q4H Lab 07/31/24 18:15 Ordered TROPONIN Q4H Lab 07/31/24 22:15 Ordered UA W/RFX UR CULTURE Stat Lab 07/31/24 14:54 Completed Medication Summary Discontinued Medications Generic Name Dose Route Start Last Admin Trade Name Phillipq PRN Reason Stop Dose Admin Sodium Chloride 1,000 mls @ 999 mls/hr 07/31/24 14:13 07/31/24 15:42 Sodium Chloride 0.9% 1000 Ml IV 07/31/24 15:13 Infused .Q1H1M STA Infusion Sodium Chloride Confirm 07/31/24 14:36 Sodium Chloride 0.9% 1000 Ml Administered 07/31/24 14:37 Dose 1,000 mls @ ud .ROUTE .K-MED ONE Lab/Rad Data: Laboratory Result Diagrams 07/31/24 14:25 07/31/24 14:25 Laboratory Results 07/31/24 07/31/24 07/31/24 Range/Units 14:54 14:54 14:25 WBC (3.98-10.04) x10^3/uL RBC (3.93-5.22) x10^6/uL Hgb (11.2-15.7) g/dL Hct (34.1-44.9) % MCV (79.4-94.8) fL MCH (25.6-32.2) pg MCHC (32.2-35.5) g/dL RDW (11.7-14.4) % Plt Count (182-369) x10^3/uL MPV (9.4-12.3) fL Gran % (34.0-71.1) % Immature Gran % (Auto) (0.001-0.429) % Nucleat RBC Rel Count (0.00-0.2) % Eos # (Auto) (0.04-0.36) x10^3/uL Immature Gran # (Auto) (0.001-0.031) x10^3u/L Absolute Lymphs (auto) (1.18-3.74) x10^3/uL Absolute Monos (auto) (0.24-0.86) x10^3/uL Absolute Nucleated RBC (0.00-0.012) x10^3u/L Lymphocytes % (19.3-51.7) % Monocytes % (4.7-12.5) % Eosinophils % (0.7-5.8) % Basophils % (0.1-1.2) % Absolute Granulocytes (1.56-6.13) x10^3/uL Basophils # (0.01-0.08) x10^3/uL Sodium (135-145) mmol/L Potassium (3.5-5.1) mmol/L Chloride (98-107) mmol/L Carbon Dioxide (22-30) mmol/L Anion Gap (5-15) MEQ/L BUN (7-17) mg/dL Creatinine (0.52-1.04) mg/dL Estimated GFR ML/MIN Glucose (74-106) mg/dL POC Glucometer (74 to 106) mg/dL Calcium (8.4-10.2) mg/dL Magnesium (1.6-2.3) mg/dL Total Bilirubin (0.2-1.3) mg/dL AST (14-36) U/L ALT (0-35) U/L Alkaline Phosphatase (38-126) U/L Troponin I (0.000-0.033) ng/mL NT-Pro-B Natriuret Pep (<300) pg/mL Serum Total Protein (6.3-8.2) g/dL Albumin (3.5-5.0) g/dL Urine Color Yellow (Yellow) Urine Appearance Clear (Clear) Urine pH 6.0 (4.6-8.0) Ur Specific Sims 1.025 (1.005-1.030) Urine Protein Negative (Negative) Urine Glucose (UA) Negative (Negative) mg/dL Urine Ketones Negative (Negative) Urine Blood Negative (Negative) Urine Nitrite Negative (Negative) Urine Bilirubin Negative (Negative) Urine Urobilinogen 1.0 A (0.2) mg/dL Ur Leukocyte Esterase Negative (Negative) U Hyaline Cast (Auto) NONE SEEN (0-2) /LPF Urine Microscopic RBC 0-2 (0-5) /HPF Urine Microscopic WBC 0-2 (0-5) /HPF Ur Epithelial Cells Few (None Seen) /HPF Urine Bacteria Few A (None Seen) /HPF Urine Culture Reflexed NO (NO) Urine HCG, Qual NEGATIVE (NEGATIVE) Influenza Type A Ag NEGATIVE (NEGATIVE) Influenza Type B Ag NEGATIVE (NEGATIVE) RSV (PCR) NEGATIVE (NEGATIVE) SARS-CoV-2 (PCR) NEGATIVE (NEGATIVE) 07/31/24 07/31/24 07/31/24 Range/Units 14:25 14:25 14:25 WBC 6.2 (3.98-10.04) x10^3/uL RBC 3.86 L (3.93-5.22) x10^6/uL Hgb 11.2 (11.2-15.7) g/dL Hct 33.9 L (34.1-44.9) % MCV 87.8 (79.4-94.8) fL MCH 29.0 (25.6-32.2) pg MCHC 33.0 (32.2-35.5) g/dL RDW 14.0 (11.7-14.4) % Plt Count 220 (182-369) x10^3/uL MPV 11.2 (9.4-12.3) fL Gran % 52.7 (34.0-71.1) % Immature Gran % (Auto) 0.3 (0.001-0.429) % Nucleat RBC Rel Count 0.0 (0.00-0.2) % Eos # (Auto) 0.11 (0.04-0.36) x10^3/uL Immature Gran # (Auto) 0.02 (0.001-0.031) x10^3u/L Absolute Lymphs (auto) 2.41 (1.18-3.74) x10^3/uL Absolute Monos (auto) 0.36 (0.24-0.86) x10^3/uL Absolute Nucleated RBC 0.00 (0.00-0.012) x10^3u/L Lymphocytes % 38.9 (19.3-51.7) % Monocytes % 5.8 (4.7-12.5) % Eosinophils % 1.8 (0.7-5.8) % Basophils % 0.5 (0.1-1.2) % Absolute Granulocytes 3.27 (1.56-6.13) x10^3/uL Basophils # 0.03 (0.01-0.08) x10^3/uL Sodium 140 (135-145) mmol/L Potassium 3.6 (3.5-5.1) mmol/L Chloride 106 (98-107) mmol/L Carbon Dioxide 20 L (22-30) mmol/L Anion Gap 17.1 H (5-15) MEQ/L BUN 12 (7-17) mg/dL Creatinine 0.52 (0.52-1.04) mg/dL Estimated GFR 131.3 ML/MIN Glucose 109 H (74-106) mg/dL POC Glucometer (74 to 106) mg/dL Calcium 9.5 (8.4-10.2) mg/dL Magnesium 1.9 (1.6-2.3) mg/dL Total Bilirubin 0.60 (0.2-1.3) mg/dL AST 26 (14-36) U/L ALT 17 (0-35) U/L Alkaline Phosphatase 49 (38-126) U/L Troponin I < 0.012 (0.000-0.033) ng/mL NT-Pro-B Natriuret Pep 25.2 (<300) pg/mL Serum Total Protein 7.8 (6.3-8.2) g/dL Albumin 4.7 (3.5-5.0) g/dL Urine Color (Yellow) Urine Appearance (Clear) Urine pH (4.6-8.0) Ur Specific Sims (1.005-1.030) Urine Protein (Negative) Urine Glucose (UA) (Negative) mg/dL Urine Ketones (Negative) Urine Blood (Negative) Urine Nitrite (Negative) Urine Bilirubin (Negative) Urine Urobilinogen (0.2) mg/dL Ur Leukocyte Esterase (Negative) U Hyaline Cast (Auto) (0-2) /LPF Urine Microscopic RBC (0-5) /HPF Urine Microscopic WBC (0-5) /HPF Ur Epithelial Cells (None Seen) /HPF Urine Bacteria (None Seen) /HPF Urine Culture Reflexed (NO) Urine HCG, Qual (NEGATIVE) Influenza Type A Ag (NEGATIVE) Influenza Type B Ag (NEGATIVE) RSV (PCR) (NEGATIVE) SARS-CoV-2 (PCR) (NEGATIVE) 07/31/24 Range/Units 13:57 WBC (3.98-10.04) x10^3/uL RBC (3.93-5.22) x10^6/uL Hgb (11.2-15.7) g/dL Hct (34.1-44.9) % MCV (79.4-94.8) fL MCH (25.6-32.2) pg MCHC (32.2-35.5) g/dL RDW (11.7-14.4) % Plt Count (182-369) x10^3/uL MPV (9.4-12.3) fL Gran % (34.0-71.1) % Immature Gran % (Auto) (0.001-0.429) % Nucleat RBC Rel Count (0.00-0.2) % Eos # (Auto) (0.04-0.36) x10^3/uL Immature Gran # (Auto) (0.001-0.031) x10^3u/L Absolute Lymphs (auto) (1.18-3.74) x10^3/uL Absolute Monos (auto) (0.24-0.86) x10^3/uL Absolute Nucleated RBC (0.00-0.012) x10^3u/L Lymphocytes % (19.3-51.7) % Monocytes % (4.7-12.5) % Eosinophils % (0.7-5.8) % Basophils % (0.1-1.2) % Absolute Granulocytes (1.56-6.13) x10^3/uL Basophils # (0.01-0.08) x10^3/uL Sodium (135-145) mmol/L Potassium (3.5-5.1) mmol/L Chloride (98-107) mmol/L Carbon Dioxide (22-30) mmol/L Anion Gap (5-15) MEQ/L BUN (7-17) mg/dL Creatinine (0.52-1.04) mg/dL Estimated GFR ML/MIN Glucose (74-106) mg/dL POC Glucometer 96 (74 to 106) mg/dL Calcium (8.4-10.2) mg/dL Magnesium (1.6-2.3) mg/dL Total Bilirubin (0.2-1.3) mg/dL AST (14-36) U/L ALT (0-35) U/L Alkaline Phosphatase (38-126) U/L Troponin I (0.000-0.033) ng/mL NT-Pro-B Natriuret Pep (<300) pg/mL Serum Total Protein (6.3-8.2) g/dL Albumin (3.5-5.0) g/dL Urine Color (Yellow) Urine Appearance (Clear) Urine pH (4.6-8.0) Ur Specific Sims (1.005-1.030) Urine Protein (Negative) Urine Glucose (UA) (Negative) mg/dL Urine Ketones (Negative) Urine Blood (Negative) Urine Nitrite (Negative) Urine Bilirubin (Negative) Urine Urobilinogen (0.2) mg/dL Ur Leukocyte Esterase (Negative) U Hyaline Cast (Auto) (0-2) /LPF Urine Microscopic RBC (0-5) /HPF Urine Microscopic WBC (0-5) /HPF Ur Epithelial Cells (None Seen) /HPF Urine Bacteria (None Seen) /HPF Urine Culture Reflexed (NO) Urine HCG, Qual (NEGATIVE) Influenza Type A Ag (NEGATIVE) Influenza Type B Ag (NEGATIVE) RSV (PCR) (NEGATIVE) SARS-CoV-2 (PCR) (NEGATIVE) - Progress Progress: improved Progress Note: 07/31/24 14:37 Differential diagnosis includes: PNA, STEMI, NSTEMI, other infection, musculoskeletal pain, pneumothorax, head bleed, pneumonia, COVID, RSV, - Head CT, UPT, viral swabs - We'll obtain basic labs, fluids, EKG, troponin, chest x-ray - EKG shows no ST changes - my read - O2 saturations consistently greater than 95%. - CXR shows no pneumonia, pneumothorax - my read 07/31/24 17:02 Patient's workup largely unremarkable. Head CT and chest x-ray are negative. I did review all radiology images. See radiologist official read for full details. I did discuss results and all incidental findings with patient/family. They state their understanding and need for appropriate follow-up. Patient's electrolytes are stable, patient is not . Patient feels improved with 1 L of fluid. Patient does have some bacteria in her urine however does have several epithelial cells as well. Will send for urine culture. Plan for discharge home at this point in time. Patient will follow-up closely. Return here sooner for new or changing symptoms. Counseled pt/family regarding: lab results, diagnosis, need for follow-up, rad results - Departure Departure Disposition: Home Clinical Impression: Episode of dizziness Condition: Stable Critical Care Time: No Referrals: YESICA ARNOLD NP [Primary Care Provider, [facility]] - Follow up/PCP as directed Instructions: Low Blood Sugar, Adult (DC)
[2024-07-31 14:49] LABS: ALBUMIN 4.7 g/dL (3.5-5.0); ANION GAP 17.1 MEQ/L (5-15); BILIRUBIN,TOTAL 0.6 mg/dL (0.2-1.3); Calcium 9.5 mg/dL (8.4-10.2); Creatinine 1 0.52 mg/dL (0.52-1.04); EST GLOMERULAR FILTRATION RATE 131.3 ML/MIN; MAGNESIUM 1.9 mg/dL (1.6-2.3); Potassium 3.6 mmol/L (3.5-5.1); Total Protein 7.8 g/dL (6.3-8.2)
[2024-07-31 15:04] LABS: NT PRO BNPII 25.2 pg/mL (<300); TROPONIN < 0.012 ng/mL (0.000-0.033)
[2024-07-31 15:10] LABS: INFLUENZA A NEGATIVE (NEGATIVE); INFLUENZA B NEGATIVE (NEGATIVE); RESPIRATORY SYNCTIAL VIRUS NEGATIVE (NEGATIVE); SARS-CoV-2 Xpert Express NEGATIVE (NEGATIVE)
[2024-07-31 15:15] LABS: Appearance Clear (Clear); Bacteria Few /HPF (None Seen); Bilirubin Negative (Negative); Blood Negative (Negative); Epithelial Cells Few /HPF (None Seen); Glucose, Urine Negative (Negative); Hyaline Casts NONE SEEN /LPF (0-2); Ketones Negative (Negative); Leukocyte Esterase Negative (Negative); Nitrite Negative (Negative); Protein,Urine Dip Negative (Negative); RBC 0-2 /HPF (0-5); Specific Gravity 1.025 (1.005-1.030); WBC 0-2 /HPF (0-5)
[2024-07-31 15:18] LABS: HCG URINE TEST NEGATIVE (NEGATIVE)
[2024-07-31 16:18] VITALS: BP 100/69; PULSE 84; RESP 17
--- NOTE | 2024-07-31 16:26 | XRAY ---
Indication: Pneumonia. Comparison: None Portable chest demonstrates normal heart, lungs, and bony thorax.
--- NOTE | 2024-07-31 16:41 | XRAY ---
Indication: Dizzy episodes. Multiple contiguous axial images obtained through the head without contrast. Comparison: None Normal appearing brain parenchyma, ventricles, and bony calvarium. Visualized paranasal sinuses and mastoid air cells are clear. Impression: Normal CT head without contrast exam.
[2024-07-31 16:50] VITALS: O2SAT 100
== END 2024-07-31 16:57 | disposition home or self-care (01) ==
LOC: ED 13:49
DX: R42 Dizziness and giddiness (principal)
CPT/HCPCS: 0241U; 36415; 70450; 71045; 80053; 81001; 81025; 82947; 83735; 83880; 84484; 85025; 93005; 93041; 96360; 99285; 99284